=== PATIENT | male | born 1980 | race Asian ===

== ENCOUNTER 2021-01-23 08:24 | Outpatient (CLI) | payer OTHER, SELFPAY ==
--- NOTE | ~2021-01-23 | XR_ITS ---
EXAMINATION: XR chest 2V DATE: 01/23/2021 08:54 INDICATION: Shortness of breath TECHNIQUE: PA and lateral views of the chest were obtained. COMPARISON: Chest CT dated 06/07/2012 FINDINGS: Again seen are a few small calcified nodules in the left mid to lower lung zone and calcified left hi lar and mediastinal lymph nodes consistent with old granulomatous disease. The lungs remain otherwise clear with no other airspace opacities, pulmonary edema, pleural effusion or pneumothorax. The cardi omediastinal silhouette is normal. IMPRESSION: 1. No acute cardiopulmonary disease. Reviewed, dictated and finalized at location B. I[facility] COURTESY BOOTH
== END 2021-01-23 08:25 | disposition home or self-care (01) ==
PROVIDERS: PCP Family Medicine; Visit Provider Family Medicine
DX: R06.02 Shortness of breath (principal)
CPT/HCPCS: 71046

== ENCOUNTER 2022-05-08 15:06 | Emergency (ER) | payer OTHER, SELFPAY ==
--- NOTE | ~2022-05-08 | XR_ITS ---
EXAMINATION: XR chest 2V DATE: 05/08/2022 15:22 INDICATION: Chest pain. TECHNIQUE: Frontal and lateral views of the chest were obtained. COMPARISON: Chest 2 views 01/23/2021, chest CT 06/07/2012 FINDINGS: A calcified left lung nodule and calcified left hilar and mediastinal lymph nodes are consi stent with old granulomatous disease. No pleural effusion or pneumothorax. The heart size is normal. IMPRESSION: 1. No acute cardiopulmonary disease. Reviewed, dictated and finalized at location B.
[2022-05-08 15:09] VITALS: BP 179/95; PULSE 98; RESP 22; TEMP 36.6; O2SAT 100
--- NOTE | 2022-05-08 15:11 | ECG_ITS ---
Measurements Intervals [place] Rate: 93 P: 30 ME: 158 QRS: -5 QRSD: 105 T: 24 QT: 358 QTc: 446 Interpretive Statements SINUS RHYTHM NO PREVIOUS ECG AVAILABLE FOR COMPARISON Electronically Signed On 05-09-2022 7:34:39 CDT by Noni Santiago MD
[2022-05-08 15:44] LABS: Basophils Absolute Auto 0.1 K/mm3 (0.0-0.1); Basophils Percent Auto 0.7 % (0.2-1.2); Eosinophils Absolute Auto 0.2 K/mm3 (0-0.3); Eosinophils Percent Auto 2.9 % (0-4.4); Hematocrit 44.5 % (42.0-52.0); Hemoglobin 14.8 g/dL (14.0-18.0); Immature Granulocyte Absolute 0.05 K/mm3 (0.00-0.031); Immature Granulocyte Percent A 0.7 % (0-0.5); Lymphocytes Absolute Auto 1.81 K/mm3 (0.9-3.2); Lymphocytes Percent Auto 26.2 % (18.3-44.2); Mean Corpuscular HGB Conc 33.3 g/dl (32-36); Mean Corpuscular Hemoglobin 29.8 pg (26-34); Mean Corpuscular Volume 89.5 fl (80-100); Mean Platelet Volume 9.6 fl (7.4-10.4); Monocytes Absolute Auto 0.7 K/mm3 (0.1-0.6); Monocytes Percent Auto 9.7 % (2.6-8.5); Neutrophils Absolute Auto 4.1 K/mm3 (1.3-6.7); Neutrophils Percent Auto 59.8 % (45.5-73.1); Platelet Count Result 243 k/mm3 (150-375); Red Blood Count 4.97 M/mm3 (4.6-6.20); Red Cell Distribution Width 12.7 % (11.5-14.5); White Blood Count 6.9 K/mm3 (4.5-10.0)
[2022-05-08 15:52] LABS: Alanine Aminotransferase 80 U/L (6-50); Albumin Level 5.1 g/dL (3.5-5.1); Alkaline Phosphatase 111 U/L (38-126); Anion Gap 10 mmol/L (8-16); Aspartate Amino Transferase 50 U/L (17-59); Bilirubin,Total 0.6 mg/dL (0.2-1.3); Blood Urea Nitrogen 15 mg/dL (9-20); Carbon Dioxide 24 mmol/L (22-30); Chloride 103 mmol/L (98-107); Estimated CRCL calculation 110 ml/min; Estimated Glomerular Filt Rate > 60; Glucose 111 mg/dL (65-110); Lipase 78 U/L (23-300); Potassium 3.8 mmol/L (3.4-5.0); Sodium 137 mmol/L (137-145)
[2022-05-08 15:55] LABS: Prothrombin Time 13.1 Seconds (11.1-14.7)
[2022-05-08 16:01] VITALS: BP 159/67; PULSE 80; RESP 17; O2SAT 100
--- NOTE | 2022-05-08 16:01 | ED.CHESTPAIN ---
HPI - Chest Pain General Chief Complaint: Chest Pain Stated Complaint: chest pain Time Seen by Provider: 05/08/22 15:15 Source: patient History of Present Illness HPI narrative: Patient presents with chest pain. Patient reports he had intermittent chest pain for the past few weeks generally exacerbated by movement of his upper extremities and torso. Today his pain was radiating to his left shoulder and arm causing some paresthesias which is unusual for him so he came to the ER for further evaluation. Initial radiation was 230 this afternoon. Reports he always has slight shortness of breath due to his weight but is not noted any change in his shortness of breath. Denies any diaphoresis nausea vomiting or diarrhea. Reports his father had a heart attack in his 50s but is still alive denies any recent hospitalizations or surgeries denies prior history of blood clots Related Data Allergies Allergy/AdvReac Type Severity Reaction Status Date / Time buspirone Allergy Unknown anxiety Verified 03/29/22 13:08 spiked atorvastatin AdvReac Mild elevated Verified 03/29/22 13:08 liver enzymes Review of Systems Review of Systems: CONSTITUTIONAL: Denies fever, chills, or sweats. EYES: Denies visual changes, redness, or discharge. ENT: Denies rhinorrhea, congestion, sore throat, or otalgia. CARDIOVASCULAR: Denies palpitations, or edema. RESPIRATORY: Denies cough or dyspnea. GASTROINTESTINAL: Denies abdominal pain, nausea, vomiting, or diarrhea. GENITOURINARY: Denies dysuria or hematuria. SKIN: Denies rash or itching. MUSCULOSKELETAL: Denies back pain, joint pain, or myalgia. NEUROLOGIC: Denies headache, numbness, dizziness, or weakness. PSYCHIATRIC: Denies anxiety or depression. All systems reviewed & are unremarkable except as noted in HPI and below PMFSH Past Medical History Medical History AC joint arthropathy Right Benign essential HTN BP (high blood pressure) Hyperlipidemia MDD (major depressive disorder), recurrent episode Family History Family History Mother Patient's mother is in good health Hypertension Father Patient's father is in good health Hypertension Family history of elevated blood lipids Family history of coronary artery disease, Onset Age: 50 Sibling Patient's brother is in good health Other Family history of Alzheimer's disease Social History Social History Social History: Smoking status: Never smoker Second hand tobacco smoke exposure: Yes Alcohol intake: current Drinks per week: 2 Substance use: never Substance use type: does not use Additional living arrangements comments: pt lives with dad Gender identity (if verbalized by the patient): Male Sexual Orientation (if Verbalized by the Patient): Straight or Heterosexual Exam Narrative: GENERAL: Well-appearing, well-nourished, and in no acute distress. HEAD: Normocephalic, atraumatic. EYES: PERRLA and EOMI. ENT: Nares clear, no rhinorrhea or epistaxis. Mucous membranes moist. NECK: Supple. No masses. No JVD CHEST: Clear to auscultation. No respiratory distress. No wheezes rales or rhonchi HEART: Regular rate and rhythm. No murmur heard. Normal peripheral pulses. ABDOMEN: Soft, nontender, nondistended, normal active bowel sounds. EXTREMITIES: Normal range of motion. No edema. SKIN: Warm, dry, no rash. NEURO: No focal deficits. Alert and oriented x3. PSYCH: Normal mood and affect. Course Reevaluation(s) Reevaluation #1: Patient resting comfortably results and plan reviewed with patient. Patient is comfortable with outpatient plan. Patient has follow-up with his primary care doctor this week to discuss his blood pressure. Date: 05/08/22 Time: 18:53 Vital Signs Vital signs: Vital Signs Temperature 36.6 C 05/08/22 15:09 Puls
[2022-05-08 16:05] LABS: Troponin I < 0.012 ng/mL (0.000-0.034)
[2022-05-08 16:31] VITALS: BP 152/77; PULSE 87; RESP 20; O2SAT 99
[2022-05-08 17:31] VITALS: BP 160/74; PULSE 83; RESP 20; O2SAT 100
[2022-05-08 18:47] LABS: Troponin I < 0.012 ng/mL (0.000-0.034)
[2022-05-08 19:00] VITALS: BP 150/80; PULSE 74; RESP 16; O2SAT 100
== END 2022-05-08 19:00 | disposition home or self-care (01) ==
PROVIDERS: Emergency Provider Emergency Medicine; PCP Family Medicine
DX: R07.9 Chest pain, unspecified (principal); I10 Essential (primary) hypertension; E78.5 Hyperlipidemia, unspecified
CPT/HCPCS: 36415; 71046; 80053; 83690; 84484; 85025; 85610; 85730; 93005; 99284

== ENCOUNTER → 2022-05-16 17:00 | Outpatient (CLI) | payer OTHER, SELFPAY ==
--- NOTE | ~2022-05-16 | XR_ITS ---
EXAMINATION: XR lumbar spine 2-3V DATE: 05/16/2022 17:40 INDICATION: Low back pain TECHNIQUE: Anteroposterior and lateral views of the lumbar spine, and cone-down lateral view of the l umbosacral junction were obtained. COMPARISON: None. FINDINGS: There is anterior wedging of the L3 vertebral body which has a chronic appearance. No acute fracture is identified. Vertebral body alignment is normal. There is mild loss of intervertebral dis c space height at L5-S1. IMPRESSION: 1. No acute osseous abnormality. Anterior wedging of the L3 vertebral body has a chronic appearance. Reviewed, dictated and finalized at location F.
--- NOTE | ~2022-05-16 | XR_ITS ---
EXAMINATION:XR cervical spine 4-5V DATE: 05/16/2022 17:40 INDICATION: Neck pain TECHNIQUE: AP, lateral, bilateral oblique, lateral swimmers and odontoid views of the cervical spine are provided. COMPARISON: None FINDINGS: Alignment is normal. There is straightening of the cervical spine which can be positional o r due to muscular spasm. The odontoid is intact. No fracture is identified. The vertebral body height s are normal. There is mild loss of intervertebral disc space height at C5-6 and C6-7. Prevertebral s oft tissues are normal. Small degenerative osteophytes project from the anterior endplates of multipl e vertebral bodies. IMPRESSION: 1. Mild cervical spondylosis without acute findings. Reviewed, dictated and finalized at location F.
== END ==
PROVIDERS: PCP Family Medicine
DX: M53.1 Cervicobrachial syndrome (principal); M53.87 Other specified dorsopathies, lumbosacral region; M47.892 Other spondylosis, cervical region
CPT/HCPCS: 72050; 72100

== ENCOUNTER 2022-08-12 14:10 | Outpatient (CLI) | payer OTHER, SELFPAY ==
--- NOTE | ~2022-08-12 | XR_ITS ---
XR knee LT min 4V DATE: 08/12/2022 14:42 INDICATION: Anterolateral knee pain. No injury. TECHNIQUE: 4 views COMPARISON: None FINDINGS: There is enthesopathy of the superior pole of patella at the insertion of the quadriceps te ndon. No fracture or dislocation or joint effusion. No periosteal reaction or bone destruction. There is mild periarticular spurring at the patellofemoral joint. No chondrocalcinosis or radiopaque intra-articular loose body. IMPRESSION: Mild osteoarthritis Reviewed, dictated and finalized at location B. IMPRESSION: Mild osteoarthritis
== END 2022-08-12 14:11 | disposition home or self-care (01) ==
LOC: ANHIMG 14:15
PROVIDERS: PCP Family Medicine; Visit Provider Nurse Practitioner Gerontology
DX: M17.12 Unilateral primary osteoarthritis, left knee (principal)
CPT/HCPCS: 73564

== ENCOUNTER 2023-07-31 14:29 | Outpatient (CLI) | payer OTHER, SELFPAY ==
--- NOTE | ~2023-07-31 | US_ITS ---
EXAMINATION: US renal BI DATE: 07/31/2023 15:16 INDICATION: Hypertension TECHNIQUE: Multiple ultrasound grayscale images of the kidneys were obtained. COMPARISON: None. FINDINGS: The right kidney measures 11.5 x 6.3 x 7.0 cm. The left kidney measures 12.2 x 7.9 x 6.8 cm. The kidn eys demonstrate normal echogenicity. There is no hydronephrosis in either kidney. No stones identifi ed. The bladder is normal with bilateral ureteral jets visualized on color Doppler. IMPRESSION: 1. Normal kidneys without hydronephrosis. Reviewed, dictated and finalized at location A.
== END 2023-07-31 14:30 | disposition home or self-care (01) ==
PROVIDERS: PCP Family Medicine; Visit Provider Physician Assistant
DX: I10 Essential (primary) hypertension (principal)
CPT/HCPCS: 76775

== ENCOUNTER 2024-02-19 09:21 | Outpatient (CLI) | payer OTHER, SELFPAY ==
--- NOTE | 2024-02-19 09:52 | EST_ITS ---
Patient Info Name: Malcolm Lujan Age: 43 years : 1980 Gender: Male Ht: 74 in Wt: 284 lbs BSA: 2.64 m2 HR: 67 bpm BP: 141 / 51 mmHg Heart Rhythm: Sinus Rhythm Exam Date: 02/19/2024 10:04 AM Exam Location: [facility] Patient Status: Outpatient Admit Date: 02/19/2024 Staff Ordering Physician: Sabina Leung PA-C Attending Provider: Sabina Leung PA-C Exercise Technologist: Franca Ann CT Exercise Physician: Pan Li DO Exam Type: CA stress test treadmill Study Info Indications R07.89 - Other chest pain A treadmill exercise stress test was performed. Summary 1. 1. Negative Tung exercise stress test for ischemic ST changes by ECG criteria. 2. 2. Reduced functional capacity, achieving 8.9 METs of workload. 3. 3. Appropriate HR response to exercise. 4. 4. Appropriate HR recovery at 1 minute post exercise. 5. 5. No imaging with stress testing. 6. 6. Patient informed of the above results. Protocol: Tung Stress ECG Details Stage: REST Duration (min): 1 min : 9 sec Speed (mph): 0.0 Grade (%): 0 HR (bpm): 69 SBP (mmHg): 141 DBP (mmHg): 51 METS: --- Stage: REST Duration (min): 5 min : 53 sec Speed (mph): 0.0 Grade (%): 0 HR (bpm): 73 SBP (mmHg): 141 DBP (mmHg): 51 METS: --- Stage: STAGE 1 Duration (min): 1 min : 0 sec Speed (mph): 1.7 Grade (%): 10 HR (bpm): 99 SBP (mmHg): 141 DBP (mmHg): 51 METS: --- Stage: STAGE 1 Duration (min): 2 min : 0 sec Speed (mph): 1.7 Grade (%): 10 HR (bpm): 109 SBP (mmHg): 141 DBP (mmHg): 51 METS: --- Stage: STAGE 1 Duration (min): 3 min : 0 sec Speed (mph): 1.7 Grade (%): 10 HR (bpm): 115 SBP (mmHg): 189 DBP (mmHg): 44 METS: --- Stage: STAGE 2 Duration (min): 1 min : 0 sec Speed (mph): 2.5 Grade (%): 12 HR (bpm): 126 SBP (mmHg): 189 DBP (mmHg): 44 METS: --- Stage: STAGE 2 Duration (min): 2 min : 0 sec Speed (mph): 2.5 Grade (%): 12 HR (bpm): 139 SBP (mmHg): 194 DBP (mmHg): 41 METS: --- Stage: STAGE 2 Duration (min): 3 min : 0 sec Speed (mph): 2.5 Grade (%): 12 HR (bpm): 145 SBP (mmHg): 194 DBP (mmHg): 41 METS: --- Stage: STAGE 3 Duration (min): 1 min : 0 sec Speed (mph): 3.4 Grade (%): 14 HR (bpm): 159 SBP (mmHg): 148 DBP (mmHg): 77 METS: --- Stage: STAGE 3 Duration (min): 1 min : 0 sec Speed (mph): 3.4 Grade (%): 14 HR (bpm): 159 SBP (mmHg): 148 DBP (mmHg): 77 METS: --- Stage: RECOVERY Duration (min): 0 min : 59 sec Speed (mph): 0.0 Grade (%): 0 HR (bpm): 146 SBP (mmHg): 148 DBP (mmHg): 77 METS: --- Stage: RECOVERY Duration (min): 1 min : 59 sec Speed (mph): 0.0 Grade (%): 0 HR (bpm): 124 SBP (mmHg): 148 DBP (mmHg): 77 METS: --- Stage: RECOVERY Duration (min): 2 min : 59 sec Speed (mph): 0.0 Grade (%): 0 HR (bpm): 115 SBP (mmHg): 163 DBP (mmHg):
== END 2024-02-19 09:22 | disposition home or self-care (01) ==
PROVIDERS: PCP Family Medicine; Visit Provider Physician Assistant
DX: R07.9 Chest pain, unspecified (principal); R42 Dizziness and giddiness; Z82.49 Family history of ischemic heart disease and other diseases of the circulatory system
CPT/HCPCS: 93017